=== PATIENT | male | born 1995 | race Caucasian/White ===

== ENCOUNTER 2017-09-27 15:54 | Emergency (ER) | payer BC ==
[~2017-09-27] VITALS: Ht 170.2 cm; Wt 61.2 kg
[2017-09-27] MEDS ORDERED: KETOROLAC TROMETH 60MG/2ML VIAL IM ONE (17:30)
[2017-09-27] MEDS ORDERED: METHOCARBAMOL 500 MG TAB PO ONE (17:45)
[2017-09-27 18:00] VITALS: BP 122/77
== END 2017-09-27 18:30 | disposition home or self-care (01) ==
LOC: ER 15:54
DX: M54.5 Low back pain (principal); V43.52XA Car driver injured in collision with other type car in traffic accident, initial encounter; Y93.89 Activity, other specified; Y99.8 Other external cause status; Y92.410 Unspecified street and highway as the place of occurrence of the external cause
CPT/HCPCS: 72100; 96372; 99284; J1885